=== PATIENT | male | born 1965 | race Caucasian/White ===

== ENCOUNTER 2019-01-25 08:26 | Inpatient (IN) | payer OTHER ==
[2019-01-25 09:48] LABS: WHITE BLOOD COUNT 111.7 10^3/ul (4.8-10.8)
[2019-01-25 09:48] LABS: ABNORMAL IP MESSAGE 1; HEMATOCRIT 20.2 % (42.0-52.0); MEAN CORPUSCULAR HEMOGLOBIN 30.9 pg (29.0-33.0); MEAN CORPUSCULAR HGB CONC 33.2 g/dl (32.0-37.0); MEAN CORPUSCULAR VOLUME 93.1 fl (82.0-101.0); MEAN PLATELET VOLUME 10.8 fl (7.4-10.4); NUCLEATED RED BLOOD CELLS% 0.3 /100WBC (0.0-0.0); PLATELET COUNT 83 10^3/UL (140-415); POSITIVE DIFF @See below; RED BLOOD COUNT 2.17 10^6/ul (4.70-6.10); RED CELL DISTRIBUTION WIDTH 17.9 % (11.5-14.5)
[2019-01-25] MEDS: ONDANSETRON 4 MG INJ IV (09:49)
[2019-01-25] MEDS: SOD CHLORIDE 0.9% 1,000 ML IV ×2 (09:49→15:14)
[2019-01-25] MEDS: HYDROmorphONE 1 MG/ML SYG IV (09:50)
[2019-01-25 09:52] LABS: HEMOGLOBIN 6.7 g/dl (14.0-18.0)
[2019-01-25 09:53] LABS: ADD MAN DIFF? YES
[2019-01-25 10:07] LABS: ALANINE AMINOTRANSFERASE 15 IU/L (13-69); ALBUMIN 3.1 g/dl (3.3-4.9); ALBUMIN/GLOBULIN RATIO 0.83; ALKALINE PHOSPHATASE 123 IU/L (42-121); ANION GAP 13 (5-13); ASPARTATE AMINO TRANSFERASE 24 IU/L (15-46); BILIRUBIN,INDIRECT 0.7 mg/dl (0-1.1); BILIRUBIN,TOTAL 0.7 mg/dl (0.2-1.3); BLOOD UREA NITROGEN 8 mg/dl (7-20); CALCIUM 8.2 mg/dl (8.4-10.2); CARBON DIOXIDE 27 mmol/L (21-31); CHLORIDE 91 mmol/L (97-110); CREATININE 0.51 mg/dl (0.61-1.24); Estimated GFR > 60 mL/min (>60); LIPASE 21 U/L (23-300); POTASSIUM 3.8 mmol/L (3.5-5.1); SODIUM 131 mmol/L (135-144); TOTAL PROTEIN 6.8 g/dl (6.1-8.1)
[2019-01-25 10:11] LABS: GLUCOSE 519 mg/dl (70-220)
[2019-01-25] MEDS ORDERED: SOD CHLORIDE 0.9% 0 ML IV (10:59)
[2019-01-25] MEDS ORDERED: ACCU-CHEK XX (11:30)
[2019-01-25] MEDS ORDERED: ACETAMINOPHEN 325 MG TAB PO ×2 (11:30→14:00)
[2019-01-25] MEDS ORDERED: ONDANSETRON 4 MG INJ IV (11:30)
[2019-01-25] MEDS: INSULIN LISPRO 100 UNIT/ML VIAL SC (12:13)
[2019-01-25 12:19] LABS: IMMEDIATE SPIN CROSSMATCH 1 3
[2019-01-25 13:14] LABS: ANISOCYTOSIS 1+ (0-0); ERYTHROBLAST% (NRBC) (M) 1 % (0-0); MICROCYTOSIS 1+ (0-0); MONOCYTE #M 5.5 10^3/ul (0.3-0.9); MONOCYTES % (M) 5 % (0-11); PLATELET ESTIMATE DECREASED; POLYCHROMASIA 1+ (0-0); RBC MORPHOLOGY COMMENT @See below; SEGMENTED NEUTROPHILS (M) % 2 % (39-77); SMUDGE%M 54 % (0-0); WBC MORPHOLOGY COMMENT @See below
[2019-01-25] MEDS ORDERED: HYDROCODONE/APAP (5/325) TAB PO (14:00)
[2019-01-25] MEDS ORDERED: GLUCAGON 1 MG INJ IM (14:30)
[2019-01-25] MEDS ORDERED: GLUCOSE GEL 15 GRAM TUBE PO ×2 (14:30)
[2019-01-25] MEDS ORDERED: GLUCOSE GEL 15 GRAM TUBE BUCCAL (14:30)
[2019-01-25] MEDS ORDERED: DEXTROSE 50% 50 ML SYRINGE IV ×2 (14:30)
[2019-01-25] MEDS: INSULIN GLARGINE [LANTus] (100 UNITS/ML) SYG SC ×2 (15:00→22:12)
[2019-01-25] MEDS: morphine 2 MG INJ IV ×2 (15:47→19:49)
[2019-01-25] MEDS: INSULIN ASPART [NOVOLOG] 3 ML PEN SC ×2 (17:51→22:11)
[2019-01-26] MEDS ORDERED: ONDANSETRON 4 MG INJ IV (01:00)
[2019-01-26] MEDS: ACCU-CHEK XX (02:36)
[2019-01-26] MEDS: SOD CHLORIDE 0.9% 1,000 ML IV ×2 (03:30→16:40)
[2019-01-26 05:35] LABS: WHITE BLOOD COUNT 112.7 10^3/ul (4.8-10.8)
[2019-01-26 05:35] LABS: ABNORMAL IP MESSAGE 1; HEMATOCRIT 20.3 % (42.0-52.0); MEAN CORPUSCULAR HEMOGLOBIN 30.8 pg (29.0-33.0); MEAN CORPUSCULAR VOLUME 90.6 fl (82.0-101.0); MEAN PLATELET VOLUME 10.4 fl (7.4-10.4); NUCLEATED RED BLOOD CELLS% 0.4 /100WBC (0.0-0.0); PLATELET COUNT 64 10^3/UL (140-415); POSITIVE DIFF @See below; RED BLOOD COUNT 2.24 10^6/ul (4.70-6.10)
[2019-01-26 05:46] LABS: ADD MAN DIFF? YES
[2019-01-26 05:47] LABS: HEMOGLOBIN 6.9 g/dl (14.0-18.0)
[2019-01-26 05:58] LABS: ANION GAP 8 (5-13); BLOOD UREA NITROGEN 3 mg/dl (7-20); CALCIUM 8.2 mg/dl (8.4-10.2); CARBON DIOXIDE 27 mmol/L (21-31); CHLORIDE 96 mmol/L (97-110); CREATININE 0.41 mg/dl (0.61-1.24); Estimated GFR > 60 mL/min (>60); GLUCOSE 204 mg/dl (70-220); SODIUM 131 mmol/L (135-144)
[2019-01-26 06:01] LABS: POTASSIUM 2.9 mmol/L (3.5-5.1)
[2019-01-26] MEDS: POTASSIUM CHLORIDE (SR) 20 MEQ TAB PO ×2 (06:39→12:52)
[2019-01-26 07:43] LABS: ANISOCYTOSIS 2+ (0-0); BAND NEUTROPHILS #M 1.1 10^3/ul (0.0-0.6); BAND NEUTROPHILS % (M) 1 % (0-4); GIANT THROMBO% (M) 1 % (0-0); LYMPHOCYTES #M 6.7 10^3/ul (0.8-2.9); LYMPHOCYTES % (M) 6 % (15-51); MICROCYTOSIS 1+ (0-0); MONOCYTE #M 12.3 10^3/ul (0.3-0.9); MONOCYTES % (M) 11 % (0-11); PLATELET ESTIMATE DECREASED; POLYCHROMASIA 1+ (0-0); SMUDGE%M 27 % (0-0)
[2019-01-26] MEDS: INSULIN ASPART [NOVOLOG] 3 ML PEN SC ×3 (08:28→18:00)
[2019-01-26 10:08] LABS: HAAIG REFLEX REFLEX FILED
[2019-01-26 12:37] LABS: LACTATE DEHYDROGENASE 1525 IU/L (313-618)
[2019-01-26 12:37] LABS: URIC ACID 3.2 mg/dl (3.1-7.9)
[2019-01-26 13:14] LABS: HEPATITIS B SURFACE ANTIGEN NEGATIVE (NEGATIVE)
[2019-01-26 13:32] LABS: HEPATITIS B CORE ANTIBODY NEGATIVE (NEGATIVE); HEPATITIS C VIRAL ANTIBODY NEGATIVE (NEGATIVE); HIV 1&2 ANTIBODY NEGATIVE (NEGATIVE)
== END 2019-01-26 18:50 | disposition hospice, home (50) | DRG 836 ==
LOC: E/R 08:26 → 2NE 11:13
PROC: 30233N1 Transfusion of Nonautologous Red Blood Cells into Peripheral Vein, Percutaneous Approach (ICD-10-PCS; principal; 2019-01-25)
DX: C92.00 Acute myeloblastic leukemia, not having achieved remission (principal); Z66 Do not resuscitate; E11.65 Type 2 diabetes mellitus with hyperglycemia; M79.10 Myalgia, unspecified site; E86.0 Dehydration; K38.8 Other specified diseases of appendix; E87.6 Hypokalemia; Z87.891 Personal history of nicotine dependence
CPT/HCPCS: 36415; 36430; 74176; 80048; 80053; 82962; 83615; 83690; 84560; 85025; 86703; 86704; 86709; 86803; 86850; 86900; 86901; 86920; 87340; 96374; 96375; 99285-25